=== PATIENT | male | born 1985 | race Caucasian/White ===

== ENCOUNTER 2018-02-03 14:34 | Emergency (ER) | payer SELFPAY, MEDICAID ==
[2018-02-03] MEDS: HYDROCODONE/APAP (5/325) TAB PO (15:11)
== END 2018-02-03 15:39 | disposition home or self-care (01) ==
LOC: FTE 15:39
DX: G89.18 Other acute postprocedural pain (principal); F17.210 Nicotine dependence, cigarettes, uncomplicated
CPT/HCPCS: 99283